=== PATIENT | female | born 1960 | race Caucasian/White ===

== ENCOUNTER 2020-04-15 11:52 | Outpatient (CLI) | payer BC, SELFPAY ==
--- NOTE | 2020-04-15 11:59 | MM_ITS ---
WS: [id number] SCREENING DIGITAL MAMMOGRAM WITH CAD HISTORY: SCREENING COMPARISON: 02/03/2017 and 01/27/2016 Bilateral CC and MLO views submitted. Computer aided detection analyzed. Breast composition: There are scattered areas of fibroglandular density. There is a new asymmetry see n on the RIGHT CC projection against the posterior mid chest wall measuring 9.5 mm. No corresponding abnormalities on the lateral projection unless this is the stable lymph node seen against the chest w all. MM/[id number] IMPRESSION: BI-RADS: 0-Incomplete: Need additional imaging evaluation FOLLOW UP: Need Additional Imaging RIGHT breast: Spot compression views (CC ). True ML. Ultrasound to follow if ab normality persists. Need to attempt to localize the RIGHT CC asymmetry better.
== END 2020-04-15 11:53 | disposition home or self-care (01) ==
LOC: RADSHAW 11:56
PROVIDERS: PCP Family Medicine; Visit Provider Family Medicine
DX: Z12.31 Encounter for screening mammogram for malignant neoplasm of breast (principal); N64.89 Other specified disorders of breast
CPT/HCPCS: 77067

== ENCOUNTER 2020-05-11 13:18 | Outpatient (CLI) | payer BC, SELFPAY ==
--- NOTE | 2020-05-11 13:24 | MM_ITS ---
WS: [id number] ADDITIONAL VIEWS RIGHT BREAST HISTORY: RIGHT BREAST ASYMMETRY COMPARISON: 05/11/2020, 02/03/2017 Compression views right CC and MLO projection. True ML also submitted. Asymmetry seen on the prior study in the central posterior RIGHT breast is no longer present. This ma y been artifact. MM/[place] [id number] IMPRESSION: BI-RADS: 2-Benign FOLLOW-UP: 1 Year Follow-up
== END 2020-05-11 13:19 | disposition home or self-care (01) ==
PROVIDERS: PCP Family Medicine; Visit Provider Family Medicine
DX: N64.89 Other specified disorders of breast (principal)
CPT/HCPCS: 77065

== ENCOUNTER → 2023-01-27 16:35 | Outpatient (BNVA) | payer OTHER, SELFPAY | PROVIDERS: PCP Family Medicine; Visit Provider Surgery | DX: L02.91 Cutaneous abscess, unspecified (principal) | CPT/HCPCS: 88304 ==